=== PATIENT | female | born 1935 ===

== ENCOUNTER 2021-11-05 16:13 | Emergency (ER) | payer OTHER ==
[~2021-11-05] VITALS: Ht 165.1 cm; Wt 63.5 kg
[2021-11-05] MEDS ORDERED: PENTOXIFYLLINE400 MG (16:27)
[2021-11-05] MEDS ORDERED: RESTORIL30 M1 (16:27)
[2021-11-05] MEDS ORDERED: ATORVASTATIN CA40 MG (16:28)
[2021-11-05] MEDS ORDERED: TAMS0.4C (16:28)
[2021-11-05] MEDS ORDERED: MIRTAZAPINE7.5 MG (16:28)
[2021-11-05] MEDS ORDERED: RENAL VITAMIN0.8 MG (16:28)
[2021-11-05] MEDS ORDERED: GALANTAMINE HBR24 MG (16:28)
[2021-11-05] MEDS ORDERED: APETIGEN-PLUS1 EACH (16:29)
[2021-11-05] MEDS ORDERED: ACETAMINOPHEN500 M1 (16:29)
[2021-11-05] MEDS ORDERED: ELIQUIS2.5 MG (16:29)
[2021-11-05] MEDS ORDERED: TOPROL XL25 M1 (16:29)
== END 2021-11-05 23:28 | disposition home or self-care (01) ==
LOC: ER 16:13
DX: E86.0 Dehydration (principal); G30.8 Other Alzheimer's disease; F02.80 Dementia in other diseases classified elsewhere, unspecified severity, without behavioral disturbance, psychotic disturbance, mood disturbance, and anxiety